=== PATIENT | female | born 1955 | race Caucasian/White ===

== ENCOUNTER 2023-04-09 12:54 | Outpatient (CLI) | payer MEDICARE ==
[~2023-04-09] VITALS: Ht 167.6 cm; Wt 63.6 kg
[2023-04-09] MEDS ORDERED: EUTHYROX50 MCG PO (13:04)
[2023-04-09] MEDS ORDERED: AMBIEN 5MG TABLE5 MG PO (13:05)
[2023-04-09] MEDS ORDERED: COZAAR 25MG25 MG/TAB PO (13:05)
[2023-04-09 13:08] VITALS: BP 165/84; PULSE 80; TEMP 97.9
[2023-04-09] MEDS ORDERED: Denosumab 60 MG/ML SYRINGE SQ ONE (13:15)
== END 2023-04-09 13:51 | disposition home or self-care (01) ==
LOC: EUO 12:54
DX: M81.0 Age-related osteoporosis without current pathological fracture (principal)
CPT/HCPCS: J0897